=== PATIENT | female | born 2000 | race American Indian/Alaskan Native ===

== ENCOUNTER 2023-09-22 12:11 | Emergency (ER) | payer MEDICAID ==
[2023-09-22] MEDS: Ketorolac 30 MG/ML SDV IM ONE (12:23)
[2023-09-22] MEDS: Orphenadrine 60 MG/2 ML Inj IM ONE (12:24)
== END 2023-09-22 13:03 | disposition home or self-care (01) ==
LOC: DL.ED 12:11
DX: S13.9XXA Sprain of joints and ligaments of unspecified parts of neck, initial encounter (principal); S63.641A Sprain of metacarpophalangeal joint of right thumb, initial encounter; S00.93XA Contusion of unspecified part of head, initial encounter; Y04.0XXA Assault by unarmed brawl or fight, initial encounter
CPT/HCPCS: 70450; 70486; 72125; 73140-F5; 96372; 99284; J1885; J2360